=== PATIENT | male | born 1945 | race Hispanic/Latino ===

== ENCOUNTER 2022-09-10 09:28 | Day surgery (SDC) | payer MEDICARE, MEDICAID ==
[2022-09-09 14:08] VITALS: BMI 27.3
[~2022-09-10 09:28] MED LIST: Bupivacaine PF 0.5% 30 ML VIAL ONE; Neomycin-Polymyxin 1 ML AMP ONE
[2022-09-10] MEDS ORDERED: Ondansetron PF 4 MG/2 ML Vial ONE (10:27)
[2022-09-10] MEDS ORDERED: Dexamethasone 4 mg/ml Vial ONE (10:27)
[2022-09-10] MEDS ORDERED: Lidocaine 1% PF 5 ML VIAL ONE (10:27)
[2022-09-10] MEDS ORDERED: PROPOFOL 0 ML ONE (10:27)
[2022-09-10] MEDS ORDERED: CEFAZOLIN 2 GM VIAL ONE (10:35)
[2022-09-10] MEDS ORDERED: PROPOFOL 20 ML ONE (10:35)
[2022-09-10] MEDS ORDERED: Fentanyl 100 MCG/2 ML VIAL ONE (11:42)
[2022-09-10] MEDS ORDERED: ePHEDrine Sulfate 50 MG/10 ML VIAL ONE (12:06)
== END 2022-09-10 14:20 | disposition home or self-care (01) ==
LOC: CSHSDC 09:28
PROVIDERS: ATTEND Podiatrist Foot & Ankle Surgery
PROC: 0SGP0JZ Fusion of Right Toe Phalangeal Joint with Synthetic Substitute, Open Approach (ICD-10-PCS; principal; 2022-09-10)
DX: M20.41 Other hammer toe(s) (acquired), right foot (principal); M79.672 Pain in left foot; L97.509 Non-pressure chronic ulcer of other part of unspecified foot with unspecified severity
CPT/HCPCS: 28285; 73620; C1713; J1100; J2405; J2704; J3010; S0020